=== PATIENT | female | born 1985 | race Asian ===

== ENCOUNTER 2017-11-29 07:03 | Day surgery (SDC) | payer OTHER ==
[~2017-11-29 07:03] MED LIST: BUPIVACAINE 0.5% (SDV) 30 ML INJ; CEFAZOLIN 2 GM/50 ML (PMX) 50 ML IVPB; LIDOCAINE 2% (MDV) 20 ML INJ; SOD CHLORIDE 0.9% 1,000 ML IV
[2017-11-29] MEDS ORDERED: MIDAZOLAM 1 MG/ML 2 ML INJ (07:32)
[2017-11-29] MEDS ORDERED: CEFAZOLIN 1 GM INJ (07:32)
[2017-11-29] MEDS ORDERED: ROCURONIUM 50 MG INJ ×2 (07:32→08:17)
[2017-11-29] MEDS ORDERED: FENTAnyl 50 MCG/ML VIAL (07:32)
[2017-11-29] MEDS ORDERED: PROPOFOL 20 ML (07:32)
[2017-11-29] MEDS ORDERED: ONDANSETRON 4 MG INJ (08:17)
[2017-11-29] MEDS ORDERED: DEXAMETHASONE 4 MG/ML 1 ML INJ (08:17)
[2017-11-29] MEDS ORDERED: METOCLOPRAMIDE 10 MG INJ (08:17)
[2017-11-29] MEDS ORDERED: KETOROLAC 30 MG INJ (08:17)
[2017-11-29] MEDS ORDERED: SUGAMMADEX SODIUM 200 MG/2 ML VIAL IV (08:17)
[2017-11-29] MEDS ORDERED: MEPERIDINE 100 MG INJ (08:27)
[2017-11-29] MEDS: BUPIVACAINE 0.25% (MPF) 30 ML INJ (08:29)
[2017-11-29] MEDS ORDERED: DOCUSATE SODIUM 100 MG CAP PO (08:30)
[2017-11-29] MEDS ORDERED: HYDROmorphONE 1 MG/5 ML IV SYRINGE IV ×3 (08:30)
[2017-11-29] MEDS ORDERED: DIPHENHYDRAMINE 50 MG INJ IV (08:30)
[2017-11-29] MEDS ORDERED: OXYCODONE/ACETAMINOPHEN (5/325) TAB PO (08:30)
[2017-11-29] MEDS ORDERED: MEPERIDINE 25 MG INJ IV (08:30)
[2017-11-29] MEDS ORDERED: METOCLOPRAMIDE 10 MG INJ IV (08:30)
[2017-11-29] MEDS ORDERED: FENTAnyl 50 MCG/ML VIAL IV ×3 (08:30)
[2017-11-29] MEDS ORDERED: EPHEDrine SULFATE 50 MG/5 ML SYG IV (08:30)
[2017-11-29] MEDS ORDERED: ONDANSETRON 4 MG INJ IV (08:30)
[2017-11-29] MEDS ORDERED: HYDROCODONE/APAP (5/325) TAB PO (08:30)
== END 2017-11-29 10:18 | disposition home or self-care (01) ==
LOC: SDS 07:03
DX: K64.8 Other hemorrhoids (principal); K64.4 Residual hemorrhoidal skin tags
CPT/HCPCS: 46946; 88307